=== PATIENT | male | born 1945 | race African-American/Black ===

== ENCOUNTER 2018-03-16 09:16 | Emergency (ER) | payer OTHER, MEDICAID ==
--- NOTE | 2018-03-16 09:48 | EDPHY ---
H & P Smoking Status: Never smoked Time Seen by Provider: 03/16/18 09:38 HPI/ROS: CHIEF COMPLAINT: Multiple complaints HISTORY OF PRESENT ILLNESS: 72-year-old male walked to the ER with multiple complaints: His 1st and primary complaint is sinus congestion, sinus pressure, yellow mucus for the past 2-3 days. No trauma. No change in voice. No dysphagia no odynophagia. No headache. No fever or chills. No cough. No dyspnea. His 2nd complaint is several years of bilateral plantar foot pain exacerbated with ambulation. He denies acute trauma. He was able to walk approximately 3 miles yesterday by his own account. No fall. No paresthesia. No discoloration. 3rd complaint is requesting admission "so I can take a bath get some rest and get something to eat" Patient's history of bipolar disorder, hypertension, diabetes. States that he self discharged all his medications a few months ago as he did not like the way they were making him feel. Regarding his bipolar disorder he denies suicidal or homicidal ideation. Denies hallucination. Regarding his hypertension diabetes states that he has not had his blood pressure and/or serum glucose checked in quite some time. States that he is not like being on antihypertensives and diabetic control medications. Urine output has been normal. No nausea or vomiting. No abdominal pain. PRIMARY CARE PROVIDER:None REVIEW OF SYSTEMS: A ten point review of systems was performed and is negative with the exception of the items mentioned in the HPI PAST MEDICAL & SURGICAL HISTORY: Bipolar disorder. Diabetes. Hypertension. SOCIAL HISTORY:denies acute alcohol or drug use. He is recently homeless. States that he had a took a bus to [place] a few days ago, for that he [place]. PHYSICAL EXAM (Prior to examination, patient consented to physical exam, hands were washed and my usual and customary physical exam procedures followed) 1) GENERAL: foul smelling. Awake,, alert and oriented. Appears to be in no acute distress. He is observed walking in the emergency department to his room with stable steady gait. Does not appear to be in discomfort when he is ambulating. 2) HEAD: Normocephalic, atraumatic 3) HEENT: Pupils equal, round, reactive to light bilaterally. Sclera anicteric. Nasopharynx, oropharynx, clear, no lesions , poor dentition. No fetid odor. No trismus or drooling. No hot potato voice. Uvula midline. No tonsillar enlargement or exudate. Tender to percussion maxillary sinuses. Ears bilaterally with normal tympanic membranes. No signs of otitis media or externa. 4) NECK: Full range of motion, no meningeal signs. No adenopathy. 5) LUNGS: Clear auscultation bilaterally, no wheezes, no rhonchi, no retractions. 6) HEART: Regular rate and rhythm, no murmur, no heave, no gallop. 7) ABDOMEN: No guarding, no rebound, no focal tenderness, negative McBurney's, negative Aguiar's, negative Rovsing's, negative peritoneal sign, 8) MUSCULOSKELETAL: Moving all extremities, no focal areas of tenderness, no obvious trauma. Bilateral feet are examined. No discoloration. No tenderness. No signs of cellulitis. No tenderness to palpation. No visible or palpable abnormality. No crepitus. Brisk capillary refill less than 2 sec. Bilateral DP and PT pulses are present and brisk with normal color normal temperature. 9) BACK: No CVA tenderness, no midline vertebral tenderness, no fluctuance, no step-off, no obvious trauma, no visual or palpable abnormality. 10) SKIN: No rash, no petechiae. 11) Psychiatric: Patient is oriented X 3, there is no agitation. 12) NEURO: Awake, alert, and oriented to person, place and time. Answers questions appropriately. There were no obvious focal neurologic abnormalities. No cerebellar dysfunction. Cranial nerves 2 through to 12 intact. Normal steady gait. Upper and lower extremities bilaterally with strength 5 / 5, reflexes 2+. DIFFERENTIAL DIAGNOSIS: In no particular include but limited to acute sinusitis , fracture, sprain, cellulitis, DVT, arterial occlusion (Joe,Katharina Claudia) Constitutional: Initial Vital Signs Temperature (C) 36.7 C 03/16/18 09:21 Heart Rate 82 03/16/18 09:21 Respiratory Rate 18 03/16/18 09:21 Blood Pressure 201/171 H 03/16/18 09:21 O2 Sat (%) 97 03/16/18 09:21 O2 Delivery Mode Room Air Allergies/Adverse Reactions: Penicillins Allergy (Verified 03/16/18 09:20) Home Medications: Medication Instructions Recorded Azithromycin [Zithromax] 500 mg PO DAILY #1 tablet 03/16/18 MDM/Departure - [facility] ED Course/Re-evaluation: 10:05 a.m.: Regarding the patient's sinus congestion, he notes 3 days of sinus congestion, yellow mucus without cough, without fever or chills. Plan will be initiation of antibiotic therapy azithromycin. Doubt deep space infection. Regarding his foot pain notes that this has been present for several years. He was observed ambulating into the ER, states that he walks approximately 3 miles per day and has reproducible foot pain when he walks. No trauma. Normal visualization on exam findings without focal tenderness, no discoloration. Doubt septic arthritis. Doubt DVT. Doubt arterial occlusion. I do not think that imaging studies are indicated at this time specifically for his feet. He was noted to be hypertensive. He notes history of hypertension. States that he has been off of all his medications including his bipolar medications, diabetes medications, anti hypertensives, stating that he does not like the way any of these medications feel. He is not interested in initiating medication therapy for any of the aforementioned conditions. He does agree to antibiotics as discussed previously. Repeat blood pressure 184/111. No chest pain, no dyspnea, no headache. Doubt hypertensive crisis. I have strongly recommended he establish primary care and have given him this follow-up information. I believe the patient to have decision-making capacity. He also has a history of bipolar disorder. He denies suicidal or homicidal ideation. He is answering questions appropriately. He states that he is upset that he would not be able to stay in the hospital to "take a bath and get some rest and something to eat". I have provided him with local snf information. Care of patient under supervision of [secondary] supervising physician Dr rosales. (Katharina Diaz) I did not see this patient while he was in the emergency department. However his care was discussed with the PA while the patient was in the department. I agree with treatment plan and management (Elder Capps) - Depart Disposition: Home, Routine, Self-Care Clinical Impression: Sinusitis Condition: Good Instructions: Sinusitis (ED) Additional Instructions: You have high blood pressure. It is very important that you control your blood pressure. Please consider going back on your blood pressure medications. You need to establish primary care and have your blood pressure followed. I also recommend you restart medication for her bipolar disorder and diabetes. It is important you control your blood sugars. Prescriptions: Azithromycin [Zithromax] 500 mg PO DAILY #1 tablet Referrals: [facility],. [Clinic] - 1-2 days without fail
[2018-03-16 10:31] VITALS: BP 178/111
--- NOTE | 2018-03-16 17:21 | ASDISCHSUM ---
Discharge Information Plan Status:Homeless/Half-Way Medically Cleared to Leave: Discharge Date:03/16/2018 10:45 AM CM D/C Disposition:[facility]re[facility] (Homeless) ADT D/C Disposition:Home, Routine, Self-Care Projected Discharge Date:03/16/2018 10:45 AM Transportation at D/C:None or Unknown Discharge Delay Reason: Follow-Up Date:03/16/2018 10:45 AM Discharge Slot: Final Diagnosis: Placement Information Patient Contact Information Contact Name:JENNIFER Relationship: Address: Home Phone: Work Phone: City: Alternate Phone: State/Zip Code: Email: Financial Information Financial Class:Medicare Primary Plan Desc:MEDICARE OUTPATIENT Primary Plan Number:[id number] Secondary Plan Desc:MEDICA[place] Secondary Plan Number:[id number] Assessment Information Intervention Information
== END 2018-03-16 10:45 | disposition home or self-care (01) ==
DX: J32.9 Chronic sinusitis, unspecified (principal); I10 Essential (primary) hypertension; E11.9 Type 2 diabetes mellitus without complications

== ENCOUNTER 2018-03-17 15:14 | Emergency (ER) | payer OTHER, MEDICAID ==
--- NOTE | 2018-03-17 16:02 | EDPHY ---
H & P Stated Complaint: eye Lac/fall/etoh Time Seen by Provider: 03/17/18 16:00 HPI/ROS: HPI: This is a 72-year-old male who presents with Chief Complaint: eye Lac/fall/etoh Location: Left eyebrow Quality: Laceration Duration: Prior to arrival Signs and Symptoms: + bleeding, no radiation, no numbness, no weakness, no tingling, no incontinence, no decreased range of motion, no swelling, no pain, no fever Timing: Acute Severity: [id number] Context: Patient arrived via EMS as he was found lying on the ground with the eyebrow laceration. He reports that he has been drinking alcohol all day and that the accident occurred in [place]. He reports that he tripped over his feet as he lost his balance and fell in his head. He is unsure of how he hit his head or when he hit his head on. Unknown LOC. Tetanus status unknown. Denies neck pain/dizziness/nausea/vomiting/amnesia. EMS applied direct pressure and bandage to the laceration. Modifying Factors: See above Comment: ROS: see HPI Constitutional: No fever, no chills, no weight loss Eyes: No blurred vision Respiratory: No shortness of breath, no cough Cardiovascular: No chest pain Gastrointestinal: No nausea, no vomiting no diarrhea Genitourinary: No dysuria Extremities: No myalgias Neurologic: No weakness, no numbness Skin: No rashes Hematologic: No bruising, no bleeding MEDICAL/SURGICAL/SOCIAL HISTORY: Medical history: sinus issues, bipolar disorder, alcoholism Surgical history: Denies Social history: Homeless. Family history noncontributory. CONSTITUTIONAL: Clearly intoxicated male, smells of alcohol, awake and alert, no obvious distress HEENT: 4 cm, deep, horizontal, linear, complex, laceration above the left eyebrow; normocephalic, PERRL, EOMI. no globe entrapment, no raccoon eyes. no Aparicio signs.Tympanic membranes clear. No tympanic membrane rupture. Nares patent; no septal hematoma. Oropharynx clear, no exudate and moist pink mucosa. No malocclusion. no dental trauma. Airway patent. No lymphadenopathy. NECK: supple, no midline tenderness, flexion 45 degrees, extension 45 degrees, right and left lateral flexion 45 degrees. No meningismus. Cardiovascular: Normal S1/S2, regular rate, regular rhythm, without murmur rub or gallop. PULMONARY/CHEST: Symmetrical and nontender. no crepitus. Clear to auscultation bilaterally. Good air movement. No accessory muscle usage. ABDOMEN: Soft, nondistended, nontender, no ecchymosis, no rebound, no guarding , no peritoneal signs, no masses or organomegaly. No CVAT. PELVIC: no pain with rocking; bilateral hips flexion 125 degrees, extension 30 degrees, with no pain internal rotation and no pain external rotation. BACK: No midline tenderness, no paraspinous spasm, deep tendon reflexes 2/2, no pain with straight leg raise EXTREMITIES: 2/2 pulses, no deformities, no clubbing, no cyanosis or edema. NEUROLOGICAL: no focal neuro deficits. GCS 15. SKIN: Warm and dry, no erythema. no rash. Good capillary refill. Source: Patient, RN/MD, EMS Exam Limitations: Intoxication - Medical/Surgical History Hx Asthma: No Hx Chronic Respiratory Disease: No Hx Diabetes: No Hx Cardiac Disease: No Hx Renal Disease: No Hx Cirrhosis: No Hx Alcoholism: No Hx HIV/AIDS: No Hx Splenectomy or Spleen Trauma: No Other PMH: sinus issues, bipolar - Social History Smoking Status: Never smoked Constitutional: Initial Vital Signs Temperature (C) 36.9 C 03/17/18 15:18 Heart Rate 93 03/17/18 15:18 Respiratory Rate 18 03/17/18 15:18 Blood Pressure 181/95 H 03/17/18 15:18 O2 Sat (%) 95 03/17/18 15:18 O2 Delivery Mode Room Air Allergies/Adverse Reactions: Penicillins Allergy (Verified 03/17/18 15:20) Home Medications: Medication Instructions Recorded Azithromycin [Zithromax] 500 mg PO DAILY #1 tablet 03/16/18 Medical Decision Making - Diagnostics Imaging Results: Imaging Impressions Head CT 03/17/18 16:39 Impression: 1. Moderate atrophy. 2. No hemorrhage, mass effect, or definite acute peripheral infarct. 3. Mild to moderate nonspecific hypodensities in the white matter of bilateral cerebral hemispheres. Differential diagnosis includes microvascular ischemic disease, post-infectious/post-inflammatory sequela, atypical demyelinating disease, or migraine-related sequela. Small white matter lacunar infarcts may also have this appearance. 4. 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 5. Extensive left maxillary, anterior ethmoid, and frontal sinus disease with complete opacification as detailed above. Findings are suspicious for polyps. Consider correlation with ENT evaluation for confirmation. 6. Soft tissue contusion with laceration over the left orbit. If symptoms worsen, additional imaging may be necessary. Findings discussed with Hetal Betancourt PAC at 17:54 hour, 03/17/2018. Procedures: Procedure: Laceration repair. Verbal consent was obtained from the patient. The 4 cm, deep, horizontal, linear, complex, laceration above the left eyebrow was anesthetized in the usual fashion using 5 mL of 0.5% bupivacaine with epinephrine. The wound was irrigated, draped and explored to its base with a gloved finger. There were no deep structures involved. No tendon injury was identified. The wound was repaired with #6, 4 0 Prolene. Good hemostasis was achieved and patient tolerated procedure well. The procedure was performed by myself. ED Course/Re-evaluation: Due to patient being intoxicated, unknown mechanism, over 65 years old; head CT scan ordered per [place] protocol Tetanus booster ordered Laceration repair and clean sterile dressing applied. During laceration repair patient reports that he remembers that he hit his left eyebrow on a railroad track. 1730: Patient ambulated to the restroom without assistance and no signs of ataxia. Called by radiologist who advised head CT scan shows no acute intracranial process. Does show complete opacification of the left maxillary sinus that is concerning for polyps versus mass. Patient reports that he has seasonal allergies chronic sinus disease. Advised to follow up with ENT. Appropriate for discharge to the [facility]. Librium prepack provided. This patient was seen under the supervision of my secondary supervising physician. I evaluated care for this patient independently. Differential Diagnosis: Head injury including but not limited to concussion, skull fracture, intraparenchymal contusion, subarachnoid, subdural and epidural hematoma. - Data Points Medications Given: Discontinued Medications Diphtheria/Tetanus/Acell Pertussis (Boostrix) 0.5 ml IM .ONCE ONE Stop: 03/17/18 16:38 Last Admin: 03/17/18 16:41 Dose: 0.5 ml Departure - Departure Disposition: Home, Routine, Self-Care Clinical Impression: Maxillary sinus mass Alcohol intoxication Qualifiers: Complication of substance-induced condition: uncomplicated Qualified Code(s): F10.920 - Alcohol use, unspecified with intoxication, uncomplicated Laceration of left eyebrow without complication Qualifiers: Encounter type: initial encounter Qualified Code(s): S01.112A - Laceration without foreign body of left eyelid and periocular area, initial encounter Condition: Good Instructions: Care For Your Stitches (ED), Facial Laceration (ED) Additional Instructions: Please slowly refrain from drinking alcohol. Keep the dressing dry and in place for 48 hours. After 48 hours, you may remove the dressing; wash the site daily with mild soap and water; then pat dry. Take Tylenol 650 mg every 4 hours and/or Ibuprofen 600 mg every 8 hours with food as needed for pain. Apply ice for 30 minutes at a time; 2-3 times per day for the next 1-[address] scan today shows opacification and possible polyp versus mass in your left maxillary sinus. Please follow-up with ear nose and throat for further evaluation. Wound Care Follow-Up: Removal of sutures in 7 days. Suture removal is complimentary in uncomplicated cases. Infection or abnormal findings would require reevaluation by the MD. In that case, you may be billed. Return to the ER immediately if you have progressive headaches, neurologic deficits, gait abnormality, visual disturbance, slurred speech, or any other symptom that concerns you. Referrals: Palmira Copeland MD [Medical Doctor] - As per Instructions [facility],. [Clinic] - As per Instructions [facility] 24 Hours [Outside] - As per Instructions
[2018-03-17] MEDS ORDERED: TDAP ADULT 0.5 ML INJ (BOOSTRIX) IM ONE (16:37)
[2018-03-17] MEDS ORDERED: CHLORDIAZEPOXIDE 25MG PREPK#6 BTL TAKEHOME ONE (18:27)
[2018-03-17 18:34] VITALS: BP 126/65
--- NOTE | 2018-03-17 20:22 | ASDISCHSUM ---
Discharge Information Plan Status:Substance Abuse Referrals Medically Cleared to Leave: Discharge Date:03/17/2018 06:31 PM CM D/C Disposition:Other (Not listed) ADT D/C Disposition:Home, Routine, Self-Care Projected Discharge Date:03/17/2018 06:31 PM Transportation at D/C:Taxicab Discharge Delay Reason: Follow-Up Date:03/17/2018 06:31 PM Discharge Slot: Final Diagnosis: Placement Information Patient Contact Information Contact Name:GABRIELLAHIREN Relationship: Address: Home Phone: Work Phone: City: Alternate Phone: State/Zip Code: Email: Financial Information Financial Class:Medicare Primary Plan Desc:MEDICARE OUTPATIENT Primary Plan Number:[id number] Secondary Plan Desc:[place] Secondary Plan Number:[id number] Assessment Information Intervention Information
== END 2018-03-17 18:31 | disposition home or self-care (01) ==
LOC: EDUNIT#
PROC: 0HQ1XZZ Repair Face Skin, External Approach (ICD-10-PCS; principal; 2018-03-17)
DX: S01.112A Laceration without foreign body of left eyelid and periocular area, initial encounter (principal); F10.920 Alcohol use, unspecified with intoxication, uncomplicated; J34.1 Cyst and mucocele of nose and nasal sinus; Z23 Encounter for immunization; W01.198A Fall on same level from slipping, tripping and stumbling with subsequent striking against other object, initial encounter; Y92.89 Other specified places as the place of occurrence of the external cause; Y99.8 Other external cause status; Y93.89 Activity, other specified